=== PATIENT | male | born 1945 | race Caucasian/White ===

== ENCOUNTER 2017-12-23 08:55 | Day surgery (SDC) | payer OTHER ==
--- OUTSIDE RECORDS SUMMARY | 2017-12-23 09:02 | XMS REPORT | Clinical Summary ---
:1945 Author Organization [facility] Address [address] [place] [address] Care Team Providers Name Role Phone Dariel Barros MD Primary Care Provider Allergies Not on File Current Medications Not on file Active Problems Not on file Social History Tobacco Use Types Packs/Day Years Used Date Never Assessed Sex Assigned at Date Recorded Not on file Last Filed Vital Signs Not on file Plan of Treatment Health Maintenance Due Date Last Done Comments COLONOSCOPY 1995 ZOSTER VACCINE 2005 PNEUMOCOCCAL POLYSACCHARIDE VACCINE AGE 65 AND OVER 2010 PNEUMOCOCCAL-13 2010 INFLUENZA VACCINE 04/29/2017 Results Not on fileafter 12/22/2016 Insurance Payer Benefit Plan / Group Subscriber ID Type Phone Address MEDICARE MEDICARE PART A AND B xxxxxxxxxx Medicare [place], [place] COMMERCIAL MISC MISC COMMERCIAL xxxxxxxxxx Commercial Home: Steven ALFONSO JR. y [phone] [address]
--- NOTE | 2017-12-23 09:23 | RAD REPORT ---
EXAM DESCRIPTION: RADOP - Outpt Chest Pa/Lat (2 Views) - 12/23/2017 8:54 am CLINICAL HISTORY: Hypertension/preop COMPARISON: None FINDINGS: The right hemidiaphragm is elevated. This is unchanged from 2016 The lungs appear clear of acute infiltrate. The heart is normal size. IMPRESSION: Chronic elevation of the right hemidiaphragm
[2017-12-23] MEDS ORDERED: Ringers Lactate 1,000 ML IV ONE (09:30)
[2017-12-23] MEDS ORDERED: CEFAZOLIN/SWI 1gm 1 GM/10 ML SYR ONE (09:30)
[2017-12-23 09:48] LABS: Potassium 4.4 mEq/L (3.6-5.0)
[2017-12-23] MEDS ORDERED: LIDOCAINE 1% 20 ML MDV ONE (10:45)
[2017-12-23] MEDS ORDERED: MIDAZOLAM HCL 2 MG/2 ML INJ ONE ×2 (10:56→11:13)
[2017-12-23] MEDS ORDERED: FENTANYL CITR 100 MCG/2 ML ONE (10:56)
[2017-12-23] MEDS ORDERED: Mastisol Adhesive Liq ONE (11:40)
--- NOTE | 2017-12-23 21:18 | OP ---
Date of Procedure: 12/23/2017 Surgeon: Edis Yeh MD Postoperative Diagnoses: Vision loss, right eye. Elevated CRP. Rule out temporal arteritis. Postoperative Diagnoses: Vision loss, right eye. Elevated CRP. Rule out temporal arteritis. Procedure Performed: Right temporal artery biopsy. Doppler utilization to identify the artery. Estimated Blood Loss: Minimal. Specimen: Right temporal artery. Findings: Above. Anesthesia: MAC. Complications: None. Disposition: The patient tolerated the procedure in stable condition and taken to Recovery in good g eneral condition. Operative Note: The patient was brought to the OR and placed in supine position. MAC anesthesia was begun. The patient was prepped and draped in usual sterile fashion and then a Doppler used to ident darrell the branches of temporal artery, anterior and superior to the right ear, marked appropriately. T hen lidocaine 1% was infiltrated locally. A 15-blade was used to make a 4 cm incision. Subcutaneous tissue divided. Deep to that. Branch of the temporal artery identified proximal and distal control obtained. Then, a 4 cm segment of the temporal artery excised, sent to Pathology, and then 4-0 silk used to tie off both ends. Wound irrigated. Bleeding controlled with cautery. A 4-0 chromic used to approximate the subcutaneous tissue and close the skin. Sterile dressing was applied. The patient was awakened and taken to Recovery in good general condition. /MODL Voice ID: [id number] Report ID: [id number]
--- NOTE | 2017-12-23 21:24 | DS ---
Date of Discharge: 12/23/2017 Discharge Note: The patient will go to Day Surgery and home when stable. Disposition: Home. Condition: Stable. Discharge Instructions: Resume home medications. Diet and activities as tolerated. No heavy liftin g. Remove outer dressing in 2 days. Shower. Keep wound clean and dry. Keep Steri-Strips on at all times. Follow up in my office in 2 weeks. Call for appointment. Follow with Dr. Hernandez in 1 filipe valderrama Tylenol No. 3 one tablet p.o. q.4 p.r.n. pain. Keep Steri-Strips on at all times. /MODL Voice ID: [id number] Report ID: [id number]
== END 2017-12-23 12:30 | disposition home or self-care (01) ==
LOC: OR 08:55
PROVIDERS: ATTEND Surgery
PROC: 03BS0ZX Excision of Right Temporal Artery, Open Approach, Diagnostic (ICD-10-PCS; principal; 2017-12-23 10:45)
DX: H54.61 Unqualified visual loss, right eye, normal vision left eye (principal); R79.82 Elevated C-reactive protein (CRP); I10 Essential (primary) hypertension; K58.9 Irritable bowel syndrome, unspecified
CPT/HCPCS: 36415; 37609; 71046; 80048; 88305; J0690; J2250 ×2; J3010

== ENCOUNTER 2018-10-19 17:40 | Emergency (ER) | payer OTHER ==
--- OUTSIDE RECORDS SUMMARY | 2018-10-19 17:42 | XMS REPORT | Clinical Summary ---
:1945 Author Organization [facility] Address [address] [place] [address] Care Team Providers Name Role Phone Dariel Barros Primary Care Provider Allergies No Known Allergies Medications Medication Sig Dispensed Refills Start Date End Date Status ALPRAZolam (NIRAVAM) Take 0.25 mg 0 Active 0.25 MG dissolvable by mouth daily tablet . gabapentin Take 300 mg by 0 Active (NEURONTIN) 300 MG mouth nightly capsule . losartan-hydrochloro Take 1 tablet 0 Active thiazide (HYZAAR) by mouth 50-12.5 mg per daily. tablet metoprolol Take 100 mg by 0 Active (TOPROL-XL) 100 MG mouth daily. 24 hr tablet sertraline (ZOLOFT) Take 100 mg by 0 Active 100 MG tablet mouth daily. cyanocobalamin, Inject as 0 Active vitamin B-12, directed every (VITAMIN B-12 INJ) 30 (thirty) days. dicyclomine (BENTYL) Take 10 mg by 0 Active 10 MG capsule mouth 3 (three) times daily. cyanocobalamin 1000 Take 1,000 mcg 0 Discontinued MCG tablet by mouth 8 daily. felodipine (PLENDIL) Take 10 mg by 0 Discontinued 10 MG 24 hr tablet mouth daily. 8 Active Problems Not on file Encounters Date Type Specialty Care Team Description 06/11/2018 Surgery Guillermo Garrison UPPER ENDOSCOPY,FNA MD Oc W/ULTRASOUND 06/11/2018 Anesthesia Event Subha Swan MD 06/11/2018 Hospital Encounter Guillermo Garrison MD 05/20/2018 Hospital Encounter Pre-Admission Resource, Oqmt Testing Preadmit Phone after 10/18/2017 Social History Tobacco Use Types Packs/Day Years Used Date Former Smoker Quit: 2002 Smokeless Tobacco: Never Used Comments: smoked pipe x 10 yrs Alcohol Use Drinks/Week oz/Week Comments No Sex Assigned at Date Recorded Not on file Job Start Date Occupation Industry Not on file Not on file Not on file Travel History Travel Start Travel End No recent travel history available. Last Filed Vital Signs Vital Sign Reading Time Taken Blood Pressure 118/56 06/11/2018 8:50 AM CDT Pulse 56 06/11/2018 8:50 AM CDT Temperature 36.3 C (97.4 F) 06/11/2018 8:30 AM CDT Respiratory Rate 23 06/11/2018 8:50 AM CDT Oxygen Saturation 94% 06/11/2018 8:50 AM CDT Inhaled Oxygen Concentration - - Weight 92.9 kg (204 lb 14.4 oz) 06/11/2018 6:59 AM CDT Height 172.7 cm (5' 8") 06/11/2018 6:59 AM CDT Body Mass Index 31.15 06/11/2018 6:59 AM CDT Plan of Treatment Not on file Procedures Procedure Name Priority Date/Time Associated Diagnosis Comments REPORT OF 06/11/2018 8:27 PROCEDURE - AM CDT ENDOSCOPY URL TISSUE EXAM AP Routine 06/11/2018 8:05 Results for this AM CDT procedure are in the results section. UPPER 06/11/2018 8:00 Neuroendocrine tumor ENDOSCOPY,BIOPSY AM CDT Special Needs (LINEAR SCOPE) UPPER ENDOSCOPY,FNA W/ULTRASOUND 06/11/2018 8:00 AM CDT Neuroendocrine tumor Special Needs (LINEAR SCOPE) after 10/18/2017 Results REPORT OF PROCEDURE - ENDOSCOPY URL (06/11/2018 8:27 AM CDT) Narrative Performed At Tissue Exam (06/11/2018 8:05 AM CDT) Case Report Surgical Pathology Report Case: [id number] [facility] Authorizing Provider:Guillermo Garrison, MDCollected: 06/11/2018 0805 [facility] Ordering Location: [facility] ENDOSCOPY Received: 06/11/2018 1204 SERVICES Pathologist: Nasrin Blunt MD Specimens: A) - Duodenal, duodenal nodule B) - Stomach,Antrum C) - Stomach, Greater Curvature D) - Stomach, Lesser Curvature E) - Stomach, Fundus Bx ADDENDUM STOMACH LESSER CURVATURE, BIOPSY: [facility] - GASTRIN IMMUNOSTAIN IS NEGATIVE FOR BAND LIKE STAINING , SUPPORTING ATROPHIC OXYNTIC TYPE MUCOSA [facility] DIAGNOSIS A. 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 STOMACH ANTRUM, BIOPSY: - GASTRIC ANTRUM TYPE MUCOSA WITH REACTIVE GASTROPATHY WITH INTESTINAL METAPLASIA - WARTHIN-STARRY STAIN FOR H. PYLORI NEGATIVE - NEGATIVE FOR DYSPLASIA C. STOMACH GREATER CURVATURE, BIOPSY: - GASTRIC BODY WITH MARKEDLY ATROPHIC CHRONIC GASTRITIS WITH MULTIFOCAL INTESTINAL METAPLASIA - SYNAPTOPHYSIN IMMUNOSTAIN IS POSITIVE FOR LINEAR, MICRONODULAR AND ADENOMATOID ECL LIKE CELL HYPERPLASIA - IMMUNOSTAIN FOR H. PYLORI IS NEGATIVE - WARTHIN-STARRY STAIN FOR H. PYLORI IS NEGATIVE D. STOMACH LESSER CURVATURE, BIOPSY: - GASTRIC MUCOSA WITH MARKEDLY ATROPHIC CHRONIC ACTIVE GASTRITIS - SYNAPTOPHYSIN IMMUNOSTAIN IS POSITIVE FOR LINEAR, MICRONODULAR AND ADENOMATOID ECL LIKE CELL HYPERPLASIA - WARTHIN-STARRY STAIN FOR H. PYLORI NEGATIVE E. STOMACH FUNDUS, BIOPSY: - GASTRIC BODY TYPE MUCOSA WITH MARKEDLY ATROPHIC - CHRONIC FOCALLY ACTIVE GASTRITIS WITH INTESTINAL METAPLASIA - SYNAPTOPHYSIN IMMUNOSTAIN IS POSITIVE FOR LINEAR, MICRONODULAR AND ADENOMATOID ECL LIKE CELL HYPERPLASIA SJ/pl Signing Pathologist Direct Phone Line: [phone] COMMENT Endoscopic report reviewed. [facility] These features are suggestive of atrophic gastritis and correlation with patient's anti-parietal serology is recommended to exclude autoimmune gastritis. CPT Code(s) 56184 x5; 94589 x 4; 15675 x4; [facility] 47797 x2 [facility] CLINICAL HISTORY Neuroendocrine [facility] SPECIMEN SOURCE A. Duodenal nodule biopsy. B. [facility] Stomach antrum biopsy. C. [facility] Greater curvature biopsy. D. Lesser curvature biopsies. E. Stomach fundus biopsy GROSS DESCRIPTION Specimen is received in five containers of formalin all labeled with the patient's information. [facility] Specimen A: Labeled "duodenal nodule" consists of four fragments of bravo tissue ranging from 0.1 to 0.5 cm, submitted in A1. Specimen B: Labeled "stomach antrum biopsy" consists of multiple fragments of bravo tissue ranging from 0.1 to 0.5 cm submitted in B1. Specimen C: Labeled "stomach greater curvature" consists of multiple fragments of bravo tissue ranging from 0.1 to 0.3 cm, submitted entirely in C1. Specimen D: Labeled "lesser curvature" consists of multiple fragments of bravo tissue ranging from 0.1 to 0.4 cm, submitted in D1. Specimen E: Labeled "stomach fundus biopsy" consists of four fragments of bravo tissue ranging from 0.1 to 0.5 cm, submitted entirely in E1. CG/ew MICROSCOPIC DESCRIPTION Performed [facility] SPECIAL STUDIES The following special studies were performed on this case and the interpretation is incorporated in the diagnostic report above: [facility] The immunohistochemistry test was developed and its performance characteristics determined by [facility], Pathology Laboratory. It has not been cleared or approved by the U.S. Food [facility] Drug Administration. The FDA has determined that such clearance or approval is not necessary. The test is used for clinical purposes. It should not be regarded as investigational or for research. This laboratory is certified under the Clinical Laboratory Improvement Amendments of 1988 (CLIA-88) as qualified to perform high complexity clinical laboratory testing. Specimen Tissue - Duodenal Performing Organization Address City/State/Zipcode Phone Number [facility] [address], [place] [phone] CENTER after 10/18/2017 Insurance Payer Benefit Plan / Group Subscriber ID Type Phone Address MEDICARE MEDICARE A B xxxxxxxxxxx Medicare [facility] GENERIC MEDICARE xxxxxxxxxx [employer] SUPPLEMENT/INDIVIDUAL SUPPLEMENT (Work) [phone]
--- OUTSIDE RECORDS SUMMARY | 2018-10-19 17:42 | XMS REPORT ---
:1945 [facility] Address [address] [place] [address] Dr. Victor [address] [place] [id number] Care Team Providers Name Role Phone GUILLERMO GARRISON Unavailable Unavailable Problems This patient has no known problems. Allergies, Adverse Reactions, Alerts This patient has no known allergies or adverse reactions. Medications This patient has no known medications. Results Test Description Test Time Test Comments Text Results Atomic Results Result Comments TISSUE EXAM 2018-06-15 13:07:00 Surgical Pathology Report Case: [id number] Authorizing Provider: Guillermo Garrison MD Collected: 06/11/2018 0805 Ordering Location: [facility] END[facility]COPY Received: 06/11/2018 1204 SERVICES Pathologist: Nasrin Blunt MD Specimens: A) - Duodenal, duodenal nodule B) - Stomach, Antrum C) - Stomach, Greater Curvature D) - Stomach, Lesser Curvature E) - Stomach, Fundus Bx STOMACH LESSER CURVATURE, BIOPSY: - GASTRIN IMMUNOSTAIN IS NEGATIVE FOR BAND LIKE STAINING , SUPPORTING ATROPHIC OXYNTIC TYPE MUCOSAAddendum electronically signed by Nasrin Blunt MD on 06/15/2018 at 1:07 PMA. 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 STOMACH ANTRUM, BIOPSY: - GASTRIC ANTRUM TYPE MUCOSA WITH REACTIVE GASTROPATHY WITH INTESTINAL METAPLASIA - WARTHIN-STARRY STAIN FOR H. PYLORI NEGATIVE - NEGATIVE FOR DYSPLASIAC. STOMACH GREATER CURVATURE, BIOPSY: - GASTRIC BODY [...] HYPERPLASIA SJ/pl Signing Pathologist Direct Phone Line: [phone] signed by Nasrin Blunt MD on 06/15/2018 at 1:05 PMEndoscopic report reviewed. These features are suggestive of atrophic gastritis and correlation with patient's anti-parietal serology is recommended to exclude autoimmune gastritis. 44338 x5; 35034 x 4; 05118 x4; 61946 [id number] A. Duodenal nodule biopsy. B. Stomach antrum biopsy. C. Greater curvature biopsy. D. Lesser curvature biopsies. E. Stomach fundus biopsy Specimen is received in five containers of formalin all labeled with the patient's information.Specimen A: Labeled "duodenal nodule" consists of four fragments of bravo tissue ranging from 0.1 to 0.5 cm, submitted in A1.Specimen B: Labeled "stomach antrum biopsy" consists of multiple fragments of rbavo tissue ranging from 0.1 to 0.5 cm submitted in B1.Specimen C: Labeled "stomach greater curvature" consists of multiple fragments of bravo tissue ranging from 0.1 to 0.3 cm, submitted entirely in C1.Specimen D: Labeled "lesser curvature" consists of multiple fragments of bravo tissue ranging from 0.1 to 0.4 cm, submitted in D1.Specimen E: Labeled "stomach fundus biopsy" consists of four fragments of bravo tissue ranging from 0.1 to 0.5 cm, submitted entirely in E1. CG/ewPerformed The following special studies were performed on this case and the interpretation is incorporated in the diagnostic report above:The immunohistochemistry test was developed and its performance characteristics determined by [facility], Pathology Laboratory. It has not been cleared or approved by the U.S. Food and Drug Administration. The FDA has determined that such clearance or approval is not necessary. The test is used for clinical purposes. It should not be regarded as investigational or for research. This laboratory is certified under the Clinical Laboratory Improvement Amendments of 1988 (CLIA-88) as qualified to perform high complexity clinical laboratory testing.
--- OUTSIDE RECORDS SUMMARY | 2018-10-19 17:42 | XMS REPORT | Clinical Summary ---
:1945 Author Organization [facility] Address [address] [place] [address] Care Team Providers Name Role Phone Dariel Barros MD Primary Care Provider Allergies Not on File Medications Not on file Active Problems Not on file Social History Tobacco Use Types Packs/Day Years Used Date Never Assessed Sex Assigned at Date Recorded Not on file Job Start Date Occupation Industry Not on file Not on file Not on file Travel History Travel Start Travel End No recent travel history available. Last Filed Vital Signs Not on file Plan of Treatment Health Maintenance Due Date Last Done Comments COLON CANCER SCREENING 1995 SHINGLES VACCINES (1 of 2) 1995 PNEUMOCOCCAL POLYSACCHARIDE VACCINE AGE 65 AND OVER 2010 PNEUMOCOCCAL-13 2010 INFLUENZA VACCINE 04/29/2018 Results Not on fileafter 10/18/2017 Insurance Payer Benefit Plan / Group Subscriber ID Type Phone Address MEDICARE MEDICARE PART A AND B xxxxxxxxxx Medicare [place], [place] COMMERCIAL MISC MISC COMMERCIAL xxxxxxxxxx Commercial Advance Directives Patient has advance care planning documents on file. For more information, please contact:[place] [phone] [place] [address]
--- NOTE | 2018-10-19 18:15 | RAD REPORT ---
EXAM DESCRIPTION: CT - [id number] - 10/19/2018 5:51 pm CLINICAL HISTORY: Trauma, head and neck injury. PAIN COMPARISON: Head Brain W/Wo Con dated 08/28/2017 TECHNIQUE: Axial 5 mm thick images of the head were obtained. Axial 2 mm thick images of the cervical spine were obtained with sagittal and coronal reconstruction images generated and reviewed. All CT scans are performed using dose optimization technique as appropriate and may include automated exposure control or mA/KV adjustment according to patient size. FINDINGS: CT HEAD WITHOUT CONTRAST: Along the falx there is increased density seen measuring up to 5 mm in thickness. This is a notable c hange relative to the comparative CT head study. Given the history of trauma this may represent a sma ll volume of acute subdural blood.Generalized brain atrophy noted.No midline shift. The paranasal sinuses and mastoids are clear.The calvarium is intact. Small right posterior scalp hem atoma. CT CERVICAL SPINE WITHOUT CONTRAST: No fracture or subluxation.Moderate midcervical degenerative changes. 2 mm degenerative anterolisthes is of C3 on 4. 3 mm degenerative anterolisthesis of C4 on 5. 4 mm degenerative anterolisthesis of C7 on T1.No prevertebral soft tissues swelling is identified. Carotid atherosclerosis. IMPRESSION: Hyperdensity along the falx is noted measuring 5 mm in thickness, notably different from comparative study. This may represent a small volume of acute subdural blood.No midline shift. MR im aging of the brain may be of value for further characterization. Moderate multilevel degenerative change of the cervical spine is seen without acute fracture suspecte d. Findings were discussed with Dr. Gill in the emergency room 6:10 p.m. 10/19/2018 by telephone.
[2018-10-19 18:18] LABS: Absolute Lymphocytes (CBC) 1.4 K/uL (0.7-4.9); Absolute Monocytes 0.8 K/uL (0.1-1.3); Absolute Neutrophil 3.9 K/uL (1.8-8.0); Basophils % 0.7 % (0-1.3); Eosinophils % 4.3 % (0-4.4); Hematocrit 45.7 % (39.6-49.0); Lymphocytes % 21.7 % (15.3-44.8); MPV 6.6 fL (7.6-11.3); Monocytes % 12.6 % (3.3-12.3); RBC Red Blood Cell Count 5.66 M/uL (4.33-5.43)
--- NOTE | 2018-10-19 18:29 | ER ---
Nurse's Notes [facility] Name: Magdiel Hernandez Jr Age: 73 yrs Sex: Male : 1945 Arrival Date: 10/19/2018 Time: 17:45 Bed 2 Private MD: Diagnosis: Traumatic subdural hemorrhage Presentation: 10/19 17:47 Presenting complaint: EMS states: witnessed fall on wet and muddy concrete. It appeared ss that patient slipped and fell striking back of head on concrete. Probable loss of consciousness. Pt is currently A\T\O x2. no active bleeding at this time, but son reports there was a small pool of blood where patient fell at the scene. Transition of care: patient was not received from another setting of care. Mechanism of Injury: resulted from a fall, from a standing position. Onset of symptoms was October 19, 2018. Risk Assessment: Do you want to hurt yourself or someone else? Patient reports no desire to harm self or others. Initial Sepsis Screen: Does the patient meet any 2 criteria? No. Patient's initial sepsis screen is negative. Does the patient have a suspected source of infection? No. Patient's initial sepsis screen is negative. Care prior to arrival: None. 17:47 Method Of Arrival: EMS: [facility] 17:47 Acuity: BECCA 2 17:47 Trauma event details: Injury occurred in the [facility], Injury occurred: in a public building. Injury occurred: October 19, 2018. Triage Assessment: 17:47 General: Appears in no apparent distress. comfortable, Behavior is calm, cooperative, ss Pt is laughing and joking with ED staff. . Pain: Complains of pain in left parietal area and right parietal area Pain currently is 5 out of 10 on a pain scale. Quality of pain is described as aching, tender, throbbing, Pain began 30 min ago. Is continuous. EENT: Nares are clear Oral mucosa is moist. Throat is clear. Neuro: Level of Consciousness is awake, alert, obeys commands, Oriented to person, situation, Supplier Development Manager are equal bilaterally. Neuro: Level of Consciousness is awake, alert, obeys commands, Oriented to person, situation, Supplier Development Manager are Moves all extremities. Full function Speech is normal, Facial symmetry appears normal, Pupils are PERRLA, Reports short term memory loss. Denies dizziness, difficulty swallowing, paresthesias numbness headache. Cardiovascular: Heart tones S1 S2 present Capillary refill < 3 seconds is brisk in bilateral fingers Patient's skin is warm and dry. Respiratory: Airway is patent Trachea midline Respiratory effort is even, unlabored, Respiratory pattern is regular, symmetrical. GI: Patient currently denies abdominal pain, nausea, vomiting. : No signs and/or symptoms were reported regarding the genitourinary system. Derm: Skin is intact, is healthy with good turgor, Skin is dry, Skin is pink, warm \T\ dry. normal. Musculoskeletal: Range of motion: intact in all extremities, Swelling present in scalp. Injury Description: Laceration sustained to scalp no active bleeding noted at this time. Trauma Activation: Alert Physician: ED Physician; Name: Dr. Gill / Edmond; Notified At: 17:32; Arrived At: 17:32 Physician: General Surgeon; Name: ; Notified At: 17:32; Arrived At: Specialty not needed Physician: Radiology; Name: Trinidad ALFONSO; Notified At: 17:32; Arrived At: 17:32 Physician: Respiratory; Name: ; Notified At: 17:32; Arrived At: Specialty not needed Physician: Lab; Name: ; Notified At: 17:32; Arrived At: Specialty not needed Historical: - Allergies: 17:49 No Known Allergies; ss - Immunization history:: Adult Immunizations up to date. - Social history:: Smoking status: Patient/guardian denies using tobacco, Patient/guardian denies using alcohol, street drugs, The patient lives with family. - Immunization history: Last tetanus immunization: - up to date. - Ebola Screening: : Patient denies exposure to infectious person Patient denies travel to an Ebola-affected area in the 21 days before illness onset. - Family history:: not pertinent. Screenin:45 Abuse screen: Denies threats or abuse. Denies injuries from another. Nutritional ss screening: No deficits noted. Tuberculosis screening: No symptoms or risk factors identified. Never had TB. Fall Risk None identified. Primary Survey: 17:47 NO uncontrolled hemorrhage observed. A: The patient is alert. Airway: patent, No ss supplemental oxygen in use on arrival. Oral cavity: clear, Trachea midline. Breathing/Chest: Respiratory pattern: regular, Respiratory effort: spontaneous, unlabored, Breath sounds: clear, bilaterally. Chest inspection: symmetrical rise and fall of the chest. Circulation: Heart tones present. Pulses: palpable right radial artery, right dorsalis pedis artery, left radial artery and left dorsalis pedis artery. Skin color: pink, Skin temperature: warm. Disability Alert. Exposure/Environment: There is no evidence of uncontrolled external bleeding. Obvious injury(ies) are noted at this time: large laceration noted to back of head. No active bleeding noted at this time. 17:47 Reassessment Airway Airway Breathing/Chest Respiratory pattern Regular Respiratory ss effort Spontaneous Unlabored Breath sounds Clear Chest inspection Symmetrical Circulation Pulses Palpable Color [place] Temperature Warm Disability Alert. Secondary Survey: 17:47 HEENT: Head Other moderate swelling and laceration without active bleeding noted to ss back of head. Nose: clear Throat: No injury or deformity noted. is clear. Musculoskeletal: Circulation, motion, and sensation intact. Range of motion: intact in all extremities. Assessment: 17:45 Reassessment: Pt to CT at this time. Awake and alert. Pt is laughing and joking with ED ss staff and son at bedside. 17:47 Reassessment: SEE TRIAGE ASSESSMENT FOR GENERAL ASSESSMENT. ss 18:45 Reassessment: Patient appears in no apparent distress at this time. Pt does not ss remember going to CT. GCS remains 14. Patient is oriented to person currently. Is laughing and joking with ED staff and family. No active bleeding noted. Wound has been cleaned and temporary dressing placed. Respiratory: Airway is patent Respiratory effort is even, unlabored, Respiratory pattern is regular, symmetrical. Derm: Skin is pink, warm \T\ dry. normal. Vital Signs: 17:49 BP 151 / 73; Pulse 72; Resp 16; Pulse Ox 98% on R/A; Weight 90.72 kg; Height 5 ft. 8 ss in. (172.72 cm); Pain 5/10; 18:33 Temp 98.0(TE); ss 18:44 BP 169 / 89; Pulse 73; Resp 18; Pulse Ox 97% on R/A; Pain 5/10; ss 17:49 Body Mass Index 30.41 (90.72 kg, 172.72 cm) [place] Coma Score: 17:47 Eye Response: spontaneous(4). Verbal Response: oriented(5). Motor Response: obeys ss commands(6). Total: 15. 17:47 Eye Response: spontaneous(4). Verbal Response: confused(4). Motor Response: obeys ss commands(6). Total: 14. 17:51 Eye Response: spontaneous(4). Verbal Response: oriented(5). Motor Response: obeys ma2 commands(6). Total: 15. 18:44 Eye Response: spontaneous(4). Verbal Response: confused(4). Motor Response: obeys ss commands(6). Total: 14. Trauma Score (Adult): 17:47 Eye Response: spontaneous(1); Verbal Response: confused(1); Motor Response: obeys ss commands(2); Systolic BP: > 89 mm Hg(4); Respiratory Rate: 10 to 29 per min(4); [place] Score: 14; Trauma Score: 12 18:44 Eye Response: spontaneous(1); Verbal Response: confused(1); Motor Response: obeys ss commands(2); Systolic BP: > 89 mm Hg(4); Respiratory Rate: 10 to 29 per min(4); [place] Score: 14; Trauma Score: 12 ED Course: 17:45 Patient arrived in ED. ss 17:45 Patient has correct armband on for positive identification. Bed in low position. Call ss light in reach. 17:45 Patient maintains SpO2 saturation greater than 95% on room air. ss 17:46 Mitesh Dick MD is Attending Physician. ma2 17:47 Thermoregulation: warm blanket given to patient. ss 17:49 Triage completed. ss 17:49 Arm band placed on right wrist. ss 17:51 CT completed. Patient tolerated procedure well. Patient moved back from CT. nj 17:52 Siena Osuna, REUBEN is Primary Nurse. ss 17:52 CT Head C Spine In Process Unspecified. EDMS 18:08 Inserted saline lock: 20 gauge in right antecubital area, using aseptic technique. rv 18:08 Initial lab(s) drawn, by me, sent to lab. rv 18:40 No provider procedures requiring assistance completed. Patient transferred, IV remains ss in place. Administered Medications: 18:31 Not Given (Duplicate Order): head elevation 30 degree 1 application Topical continuous ss 18:35 Not Given (Physician Discretion): Lidocaine-Epinephrine -1%: (1:100,000) 20 ml 20 ml ss Infiltration once; to bedside Intake: 18:44 PO: 0ml; Total: 0ml. Outcome: 18:27 ER care complete, transfer ordered by . ma2 18:52 Condition: stable ss 18:52 Instructed on the need for transfer. 19:15 [facility], Transfer form completed. X-rays sent ss w/ patient. 19:16 Patient's length of stay was not longer than 2 hours. ss 19:16 Patient left the ED. ss 19:37 Patient left the ED. ss Signatures: Dispatcher [employer] EDMS German Mckay RN RN Siena Osuna RN RN Lauri Vuong Mohammad, MD MD ma2 Marvin Esparza RN RN rv Corrections: (The following items were deleted from the chart) 18:31 18:19 head elevation 30 degree 1 application Topical in affected area [facility] 18:51 17:47 Injury Description: Laceration sustained to scalp [facility]
--- NOTE | 2018-10-19 18:30 | EDPHYS ---
Physician Documentation [facility] Name: Magdiel Hernandez Jr Age: 73 yrs Sex: Male : 1945 Arrival Date: 10/19/2018 Time: 17:45 Bed 2 Private MD: ED Physician Mitesh Dick HPI: 10/19 17:51 This 73 yrs old Male presents to ER via EMS with complaints of Head ma2 Injury-Adult. 17:51 The patient or guardian reports injury, a laceration, complex, pain, tenderness. The ma2 complaints affect the occipital area . Onset: The symptoms/episode began/occurred suddenly, 1 hour(s) ago. Associated signs and symptoms: Loss of consciousness: This patient experience a loss of consciousness, Pertinent positives: headache, Pertinent negatives: patient denies any alcohol consumption, dazed, headache, injury, weakness in extremities, generalized weakness. Severity of symptoms: At their worst the symptoms were moderate, in the emergency department the symptoms are unchanged. The patient has experienced a previous episode. The patient has experienced a previous episode. Historical: - Allergies: 17:49 No Known Allergies; ss - Immunization history:: Adult Immunizations up to date. - Social history:: Smoking status: Patient/guardian denies using tobacco, Patient/guardian denies using alcohol, street drugs, The patient lives with family. - Immunization history: Last tetanus immunization: - up to date. - Ebola Screening: : Patient denies exposure to infectious person Patient denies travel to an Ebola-affected area in the 21 days before illness onset. - Family history:: not pertinent. ROS: 17:51 Constitutional: Negative for fever, chills, and weight loss, Cardiovascular: Negative ma2 for chest pain, palpitations, and edema, Respiratory: Negative for shortness of breath, cough, wheezing, and pleuritic chest pain, Abdomen/GI: Negative for abdominal pain, nausea, diarrhea, and constipation, MS/Extremity: Negative for injury and deformity, Skin: Negative for injury, rash, and discoloration, Neuro: Negative for headache, weakness, numbness, tingling, and seizure, Psych: Negative for depression, anxiety, suicide ideation, homicidal ideation, and hallucinations. 17:51 ENT: Positive for 17:51 Neuro: Positive for headache, Negative for dizziness, loss of consciousness, seizure activity, syncope, visual changes, weakness. 17:51 All other systems are negative. Exam: 17:51 Constitutional: This is a well developed, well nourished patient who is awake, alert, ma2 and in no acute distress. ENT: Nares patent. No nasal discharge, no septal abnormalities noted. Tympanic membranes are normal and external auditory canals are clear. Oropharynx with no redness, swelling, or masses, exudates, or evidence of obstruction, uvula midline. Mucous membranes moist. Chest/axilla: Normal chest wall appearance and motion. Nontender with no deformity. No lesions are appreciated. Cardiovascular: Regular rate and rhythm with a normal S1 and S2. No gallops, murmurs, or rubs. Normal PMI, no JVD. No pulse deficits. Respiratory: Lungs have equal breath sounds bilaterally, clear to auscultation and percussion. No rales, rhonchi or wheezes noted. No increased work of breathing, no retractions or nasal flaring. Abdomen/GI: Soft, non-tender, with normal bowel sounds. No distension or tympany. No guarding or rebound. No evidence of tenderness throughout. MS/ Extremity: Pulses equal, no cyanosis. Neurovascular intact. Full, normal range of motion. Neuro: Awake and alert, GCS 15, oriented to person, place, time, and situation. Cranial nerves II-XII grossly intact. Motor strength 5/5 in all extremities. Sensory grossly intact. Cerebellar exam normal. Normal gait. 17:51 Head/face: Noted is abrasion(s), a laceration(s), that is jagged, of the right occipital area. Vital Signs: 17:49 BP 151 / 73; Pulse 72; Resp 16; Pulse Ox 98% on R/A; Weight 90.72 kg; Height 5 ft. 8 ss in. (172.72 cm); Pain 5/10; 18:33 Temp 98.0(TE); ss 18:44 BP 169 / 89; Pulse 73; Resp 18; Pulse Ox 97% on R/A; Pain 5/10; ss 17:49 Body Mass Index 30.41 (90.72 kg, 172.72 cm) [place] Coma Score: 17:47 Eye Response: spontaneous(4). Verbal Response: oriented(5). Motor Response: obeys commands(6). Total: 15. 17:47 Eye Response: spontaneous(4). Verbal Response: confused(4). Motor Response: obeys ss commands(6). Total: 14. 17:51 Eye Response: spontaneous(4). Verbal Response: oriented(5). Motor Response: obeys ma2 commands(6). Total: 15. 18:44 Eye Response: spontaneous(4). Verbal Response: confused(4). Motor Response: obeys ss commands(6). Total: 14. Trauma Score (Adult): 17:47 Eye Response: spontaneous(1); Verbal Response: confused(1); Motor Response: obeys ss commands(2); Systolic BP: > 89 mm Hg(4); Respiratory Rate: 10 to 29 per min(4); [place] Score: 14; Trauma Score: 12 18:44 Eye Response: spontaneous(1); Verbal Response: confused(1); Motor Response: obeys ss commands(2); Systolic BP: > 89 mm Hg(4); Respiratory Rate: 10 to 29 per min(4); [place] Score: 14; Trauma Score: 12 MDM: 17:46 Patient medically screened. ma2 17:51 Differential diagnosis: Contusion of Hematoma on Laceration of Intracranial bleed- ma2 Concussion. 18:26 Data reviewed: vital signs, nurses notes, radiologic studies. Counseling: I had a ma2 detailed discussion with the patient and/or guardian regarding: the historical points, exam findings, and any diagnostic results supporting the discharge/admit diagnosis, the presence of at least one elevated blood pressure reading (>120/80) during this emergency department visit, the need to transfer to another facility, for higher level of care. ED course: accepted by Dr. Fernandes at [facility]. 18:32 Counseling: I had a detailed discussion with the patient and/or guardian regarding: ma2 transfer higher level of care for NSGY not available in our hospital . 19:30 ED course: diagnosis is traumatic subdural hematoma. mi2 10/19 17:47 Order name: Basic Metabolic Panel; Complete Time: 18:37 mi2 10/19 17:47 Order name: CBC with Diff; Complete Time: 18:24 mi2 10/19 17:47 Order name: CT Head C Spine; Complete Time: 18:22 mi2 10/19 17:47 Order name: Creatinine for Radiology; Complete Time: 18:37 [facility] 10/19 17:47 Order name: Type And Screen; Complete Time: 19:07 [facility] 10/19 17:47 Order name: Labs collected and sent; Complete Time: 18:16 [facility] 10/19 18:01 Order name: Dressing - Wound; Complete Time: 18:47 [facility] 10/19 18:32 Order name: Misc. Order: elevate HOB 30 degrees; Complete Time: 18:33 ss Administered Medications: 18:31 Not Given (Duplicate Order): head elevation 30 degree 1 application Topical continuous ss 18:35 Not Given (Physician Discretion): Lidocaine-Epinephrine -1%: (1:100,000) 20 ml 20 ml ss Infiltration once; to bedside Disposition: 19:30 Co-signature as Attending Physician, Mitesh Dick MD. [facility] Disposition: 10/19/18 18:27 Transfer ordered to [facility]. Diagnosis is Traumatic subdural hemorrhage. - Reason for transfer: Higher level of care. - Accepting physician is Dr. Dena GREEN. - Condition is Stable. - Problem is new. - Symptoms are unchanged. Critical care time excluding procedures: 19:30 Critical care time: Bedside Care: 20 minutes, Consultation: 20 minutes, Family ma2 Intervention: 10 minutes. Total time: 50 minutes Signatures: Dispatcher [employer] EDGerman Ferrell RN RN sg Anderson, Corey, MD MD cha Smirch, Shelby, RN RN ss Page, Corey, PA PA cp Alzahri, Mohammad, MD MD maDamien Corrections: (The following items were deleted from the chart) 18:32 18:31 Misc. Order ordered. ss ss 18:47 18:01 Sterile Gloves ordered. ma2 ss 18:48 18:01 Setup Suture Tray ordered. ma2 ss 19:16 18:27 10/19/2018 18:27 Transfer ordered to [facility]. ss Diagnosis is Nontraumatic acute subdural hemorrhage. Reason for transfer: Higher level of care. Accepting physician is Dr. Dena GREEN. Condition is Stable. Problem is new. Symptoms are unchanged. ma2 19:34 19:16 10/19/2018 18:27 Transfer ordered to [facility]. ma2 Diagnosis is Nontraumatic acute subdural hemorrhage. Reason for transfer: Higher level of care. Accepting physician is Dr. Dena GREEN. Condition is Stable. Problem is new. Symptoms are unchanged. ss 19:37 19:34 10/19/2018 18:27 Transfer ordered to [facility]. ss Diagnosis is Traumatic subdural hemorrhage. Reason for transfer: Higher level of care. Accepting physician is Dr. Dena GREEN. Condition is Stable. Problem is new. Symptoms are unchanged. ma2
[2018-10-19] MEDS ORDERED: LIDOCAINE 1% W/EPI 1:100,000 MDV 50 ML VIAL ONE (18:35)
== END 2018-10-19 19:37 | disposition short-term general hospital (02) ==
LOC: ER 17:40
DX: S06.5X9A Traumatic subdural hemorrhage with loss of consciousness of unspecified duration, initial encounter (principal); W01.0XXA Fall on same level from slipping, tripping and stumbling without subsequent striking against object, initial encounter; Y93.89 Activity, other specified; Y92.89 Other specified places as the place of occurrence of the external cause
CPT/HCPCS: 36415; 70450; 72125; 80048; 85025; 86850; 86900; 86901; 99285

== ENCOUNTER 2022-03-04 09:49 | Emergency (ER) | payer OTHER ==
--- OUTSIDE RECORDS SUMMARY | 2022-03-04 09:51 | XMS REPORT | Continuity of Care Document ---
:1945 Author Organization [facility] t Address [address] [place] [address] Care Team Providers Name Role Phone ROSANA RODRIGUEZ Primary Care Physician Unavailable JEFF GARRISON Attending Clinician Unavailable GEORGE Attending Clinician Unavailable Royal RN FIELD Attending Clinician Provider, Urgent Care Attending Clinician Unavailable ROYAL Attending Clinician Unavailable JEFF GARRISON Admitting Clinician Unavailable Payers Payer Name Policy Type Policy Number Effective Date Expiration Date S eben MEDICARE A B [id number] 2010 00:00:00 GENERIC MEDICARE [id number] 2015 SUPPLEMENT 00:00:00 MEDICARE PART A \\T\\ [id number] B - MEDICARE POS - [employer] [id number] MEDIGAP-GENERIC - [id number] GENERIC PAYOR Problems Condition Condition Condition Status Onset Resolution Last Treating Co mments Source Name Details Category Date Date Treatment Clinician Date No known No known Disease Unive rs active active ity of problems problems [facility] Allergies, Adverse Reactions, Alerts Allergy Allergy Status Severity Reaction(s) Onset Inactive Treating Comm ents Source Name Type Date Date Clinician NO KNOWN Drug Active Univers ALLERGIE Class ity of S [facility] NO KNOWN Allergy Active [facility] ALLERGIE S Social History Social Habit Start Date Stop Date Quantity Comments Source History of Cigarette Smoker Universi ty of tobacco use [place] [facility] Sex Assigned At Universit y of [facility] Tobacco use and 2020-06-03 2020-06-03 Never used Universit y of exposure 00:00:00 00:00:00 [facility] Smoking Status Start Date Stop Date Source Former smoker 2020-06-03 00:00:00 2020-06-03 00:00:00 [facility] Medications Ordered Filled Start Stop Current Ordering Indication Dosage Frequency Signature Comments Components Source Medication Medication Date Date Medication? Clinician (SIG) Name Name vit 2019-0 Yes Take by Univers C/E/Zn/chidi 9-05 mouth. ity of r/lutein/ze 19:38: [place] [id number] Medical (PRESERVISI Branch ON AREDS-2 ORAL) vit 2019-0 Yes Take by Univers C/E/Zn/chidi 9-05 mouth. ity of r/lutein/ze 19:38: [place] [address] Medical (PRESERVISI Branch ON AREDS-2 ORAL) amitriptyli 2019-0 Yes Univer s ne 10 mg 9-05 ity of tablet 00:00: [address] albuterol 2019-0 Yes [id number] 2{puff} Inhale 2 Univers 90 9-05 Puffs ity of mcg/actuati 00:00: every 6 Bry as on inhaler 00 (six) Medical hours as Branch needed for Wheezing, Shortness of Breath or Chest tightness. benzonatate 2020-0 Yes [id number] 100mg Take 1 Univers (TESSALON 9-05 capsule by ity of PERLES) 100 00:00: mouth 3 Bry as mg capsule 00 (three) Medica l times Branch daily as needed for Cough. amitriptyli 2019-0 Yes Univer s ne 10 mg 9-05 ity of tablet 00:00: [address] albuterol 2020-0 Yes [id number] 2{puff} Inhale 2 Univers 90 9-05 Puffs ity of mcg/actuati 00:00: every 6 Bry as on inhaler 00 (six) Medical hours as Branch needed for Wheezing, Shortness of Breath or Chest tightness. benzonatate 2020-0 Yes [id number] 100mg Take 1 Univers (TESSALON 9-05 capsule by ity of PERLES) 100 00:00: mouth 3 Bry as mg capsule 00 (three) Medica l times Branch daily as needed for Cough. felodipine 2020-0 Yes Univers 10 mg 24 hr 9- ity of tablet 00:00: [place] 00 [facility] Branch felodipine 2020-0 Yes Univers 10 mg 24 hr 9- ity of tablet 00:00: [place] 00 Medical Branch SERTraline 2020-0 Yes Univers 100 mg 8-29 ity of tablet 00:00: [place] 00 Medical Branch SERTraline 2020-0 Yes Univers 100 mg 8-29 ity of tablet 00:00: [place] 00 Medical Branch oxybutynin 2019-0 Yes TAKE 1 Unive rs 10 mg 24 hr 8-28 TABLET BY ity of tablet 00:00: MOUTH [place] 00 TWICE Medical DAILY FOR Branch 90 DAYS metoprolol 2019-0 Yes 100mg Take 100 Un dalila succinate 8-28 mg by ity of XL 100 mg 00:00: mouth [place] 24 hr 00 daily. Medical tablet Branch gabapentin 2019-0 Yes TAKE 1 Unive rs 100 mg 8-28 CAPSULE BY ity of capsule 00:00: MOUTH AT [place] 00 BEDTIME Medical FOR 30 Branch DAYS oxybutynin 2019-0 Yes TAKE 1 Unive rs 10 mg 24 hr 8-28 TABLET BY ity of tablet 00:00: MOUTH [place] 00 TWICE Medical DAILY FOR Branch 90 DAYS metoprolol 2019-0 Yes 100mg Take 100 Un dalila succinate 8-28 mg by ity of XL 100 mg 00:00: mouth [place] 24 hr 00 daily. Medical tablet Branch gabapentin 2019-0 Yes TAKE 1 Unive rs 100 mg 8-28 CAPSULE BY ity of capsule 00:00: MOUTH AT [place] 00 BEDTIME Medical FOR 30 Branch DAYS ALPRAZolam 2019-0 Yes .25mg Take 0.25 U nivers 0.25 mg 8-22 mg by ity of tablet 00:00: mouth [place] 00 daily. Medical Branch ALPRAZolam 2019-0 Yes .25mg Take 0.25 U nivers 0.25 mg 8-22 mg by ity of tablet 00:00: mouth [place] 00 daily. Medical Branch losartan-hy 2020-0 Yes 1{tbl} Take 1 Un dalila drochloroth 8-21 tablet by ity of iazide 00:00: mouth [place] 50-12.5 mg 00 daily. Medical per tablet Branch losartan-hy 2020-0 Yes 1{tbl} Take 1 Un dalila drochloroth 8-21 tablet by ity of iazide 00:00: mouth [place] 50-12.5 mg 00 daily. Medical per tablet Branch dicyclomine Yes TAKE 1 Univ ers 10 mg 3-31 CAPSULE BY ity of capsule 00:00: MOUTH [place] 00 THREE Medical TIMES A Branch DAY (BEFORE MEALS) TAKE 1 CAPSULE BY MOUTH FOUR TIMES A DAY dicyclomine 2019-0 Yes TAKE 1 Univ ers 10 mg 3-31 CAPSULE BY ity of capsule 00:00: MOUTH [place] 00 THREE Medical TIMES A Branch DAY (BEFORE MEALS) TAKE 1 CAPSULE BY MOUTH FOUR TIMES A DAY Vital Signs Vital Name Observation Time Observation Value Comments Source HEIGHT 2021-01-22 08:37:00 174 cm WEIGHT 2021-01-22 08:37:00 94.303 kg WEIGHT 2021-01-18 13:32:00 94.348 kg HEIGHT 2021-01-18 13:32:00 172.7 cm HEIGHT 2021-01-22 08:37:00 174 cm WEIGHT 2021-01-22 08:37:00 94.303 kg WEIGHT 2021-01-18 13:32:00 94.348 kg HEIGHT 2021-01-18 13:32:00 172.7 cm Systolic blood 2020-06-03 19:29:00 134 mm[Hg] Univer sity [facility] Diastolic blood 2020-06-03 19:29:00 77 [facility]Hg[facility] 2020-06-03 19:27:00 87 /min [facility] Body temperature 2020-06-03 19:27:00 36.72 [facility] Respiratory rate 2020-06-03 19:27:00 20 /min [facility] Body height 2020-06-03 19:27:00 172.7 cm [facility] Body weight 2020-06-03 19:27:00 94.348 kg [facility] BMI 2020-06-03 19:27:00 31.63 kg/m2 [facility] Oxygen saturation in 2020-06-03 19:27:00 94 /min University Arterial blood by [facility] Pulse oximetry Branch Systolic blood 2020-06-03 19:29:00 134 mm[Hg] Univer sity [facility] Diastolic blood 2020-06-03 19:29:00 77 mm[Hg] Unive rsity of pressure [facility] Heart rate 2020-06-03 19:27:00 87 /min Universi [facility] Body temperature 2020-06-03 19:27:00 36.72 Minoo [facility] Respiratory rate 2020-06-03 19:27:00 20 /min [facility] Body height 2020-06-03 19:27:00 172.7 cm Universi ty [facility] Body weight 2020-06-03 19:27:00 [facility] 2020-06-03 19:27:00 31.63 kg/m2 [facility] Oxygen saturation in 2020-06-03 19:27:00 94 /min [facility] Arterial blood by [facility] Pulse oximetry Branch Procedures Procedure Date / Time Performed Performing Clinician Sour e XR CHEST 2 VW 2020-06-03 20:21:37 Marsha Martines [place] o f [facility] Encounters Start End Encounter Admission Attending Care Care Encounter Source Date/Time Date/Time Type Type Clinicians Facility Department ID 2021-07-07 Outpatient KASIE GARRISON Surgery [id number] [facility] 11:48:47 GUILLERMO 2021-05-01 2021-05-01 Outpatient YOUSIF GARRISON [facility] [id number] [facility] 07:49:47 08:37:07 GUILLERMO [facility] of Medicin e 2021-01-18 2021-01-18 Outpatient [facility] [id number] [facility] 00:00:00 00:00:00 2020-06-03 2020-06-03 [facility] [id number] 15:05:09 23:59:00 Encounter Marsha Diaz [id number] [place] [id number] [place] [id number] 2020-06-03 2020-06-03 [facility] [id number] [facility] 15:05:09 23:59:00 Encounter Marsha Diaz [id number] ity latoya Jim [id number] [facility] [id number] [facility] [address] [place] 2020-06-03 2020-06-03 Urgent Provider, [facility] [id number] 14:22:44 15:41:42 [facility] [id number] Care [place] [id number] Professio [id number] [address] 2020-06-03 2020-06-03 Urgent Provider, [facility] [id number] [facility] 14:22:44 15:41:42 Care [facility] [id number] ity of [place] [id number] Bry as Professio [id number] [facility] [address] [place] [address] 2020-06-03 2020-06-03 Outpatient R [facility]AL [facility] [id number] Univers 14:20:00 14:20:00 [facility] Results Test Test Test Results Result Source Description Time Comments Comments TISSUE EXAM 2020-12- Surgical Pathology 28 Report 07:58:00 Case: [id number] Authorizing Provider: Guillermo Garrison MD Collected: 01/22/2021 11:20 AM Ordering Location: [facility] Endoscopy Received: 01/22/2021 02:27 PM Services Pathologist: Bobby Warner MD Specimens: A) - Biopsy, Gastric, gastric antrum biopsy B) - Biopsy, Gastric, gastric body biopsy A. STOMACH, ANTRUM, BIOPSY: - MILD CHRONIC INACTIVE GASTRITIS - NEGATIVE FOR HELICOBACTER PYLORI ORGANISMS BY WARTHIN STARRY STAIN - NEGATIVE FOR INTESTINAL METAPLASIA, DYSPLASIA, MALIGNANCYB. STOMACH, BODY, BIOPSY: - CHRONIC ATROPHIC GASTRITIS WITH INTESTINAL METAPLASIA (SEE COMMENT) - LINEAR, MICRONODULAR ECL CELL LIKE HYPERPLASIA - NEGATIVE FOR HELICOBACTER PYLORI ORGANISMS BY WARTHIN STARRY STAIN - NEGATIVE FOR DYSPLASIA, MALIGNANCY Signing Pathologist Direct Phone Line: [phone] ly signed by Bobby Warner MD on 01/24/2021 at 7:58 AMB. Immunostains for synaptophysin and chromogranin are examined and support the above diagnosis. Clinical and endoscopic corerlation is recommended to exclude autoimmune gastritis.[id number] tumorA. Biopsy, gastric antrumB. Biopsy, gastric bodyA. Received in formalin labeled with the patient's name, medical record number and "gastric Bx" and consists of 4 bravo-white soft tissue fragments measuring 1.5 x 0.2 x 0.2 cm in aggregate. The specimen is submitted in toto in A1.B. Received in formalin labeled with the patient's name, medical record number and gastric Bx" and consists of 2 bravo-pink soft tissue fragments measuring 0.9 x 0.3 x 0.3 cm in aggregate. The specimen is submitted in toto in B1.[facility] interpretation of this case included the use of immunohistochemistry or special stains.Control Slides Examined: In-house known positive controls were evaluated along with the test tissue. These control slides run alongside of the patients sample show appropriate staining. Internal positive and negative controls when available are evaluated Immunohistochemistry technical testing was performed at [facility], Pathology Laboratory where it was developed and its performance characteristics were determined. It has not been cleared or approved [...] to perform high complexity clinical laboratory testing. XR CHEST 2 VW 2020-05- No acute cardiopulmonary process. [facility] 23:16:30 Elevated right Branch hemidiaphragm, which can be seen in the setting of phrenicnerve palsy. Preliminary Report Dictated by Resident: Wali Suárez MD., have reviewed this study and agree with the abovereport.PROCEDURE: XR CHEST 2 VW CLINICAL INDICATION: cough and sob TECHNIQUE: Frontal and lateral radiographs were obtained. COMPARISON: None FINDINGS: The right hemidiaphragm is elevated. The lungs are clear. No pleuraleffusion or pneumothorax is seen. The heart is normal in size. No acute bony abnormality is noted. Mild old anterior compression of T12and L1 vertebral bodies is noted resulting in kyphosis [facility], Radiant Results Inft User - 06/03/2020 6:17 PM CDTPROCEDURE: XR CHEST 2 VWCLINICAL INDICATION: cough and sob TECHNIQUE: Frontal and lateral radiographs were obtained.COMPARISON: NoneFINDINGS:The right hemidiaphragm is elevated. The lungs are clear. No pleuraleffusion or pneumothorax is seen. The heart is normal in size.No acute bony abnormality is noted. Mild old anterior compression of T12and L1 vertebral bodies is noted resulting in kyphosisIMPRESSIONNo acute cardiopulmonary process.Elevated right hemidiaphragm, which can be seen in the setting of phrenicnerve palsy.Preliminary Report Dictated by Resident: Wali Patterson MD., have reviewed this study and agree with the abovereport. TISSUE EXAM 2018-05- Surgical Pathology 17 Report 13:07:00 Case: [id number] Authorizing Provider: Guillermo Garrison MD Collected: 06/11/2018 0805 Ordering Location: [facility] ENDOSCOPY Received: 06/11/2018 1204 SERVICES Pathologist: [...] HYPERPLASIA SJ/pl Signing Pathologist Direct Phone Line: [phone] ly signed by Nasrin Blunt MD on 06/15/2018 at 1:05 PMEndoscopic report reviewed. These features are suggestive of atrophic gastritis and correlation with patient's anti-parietal serology is recommended to exclude autoimmune gastritis. 01603 x5; 38092 x 4; 97245 x4; 85501 [id number] A. Duodenal nodule biopsy. B. Stomach antrum [...] developed and its performance characteristics determined by [facility], Pathology Laboratory. It has not been cleared [...]
--- NOTE | 2022-03-04 11:07 | ER ---
Nurse's Notes [facility] Name: Magdiel Hernandez Jr Age: 76 yrs Sex: Male : 1945 Arrival Date: 03/04/2022 Time: 09:55 Bed 11 Private MD: Marisol Kuhn Diagnosis: Bleeding from scrotum, resolved Presentation: 03/04 10:11 Chief complaint: Patient states: noticed blood in shower this morning, was unsure if it iw was coming from his urethra or his rectum, has hx of multiple urological issues. Coronavirus screen: At this time, the client does not indicate any symptoms associated with coronavirus-19. Ebola Screen: Patient negative for fever greater than or equal to 101.5 degrees Fahrenheit, and additional compatible Ebola Virus Disease symptoms Patient denies exposure to infectious person. Patient denies travel to an Ebola-affected area in the 21 days before illness onset. No symptoms or risks identified at this time. Initial Sepsis Screen: Does the patient meet any 2 criteria? No. Patient's initial sepsis screen is negative. Does the patient have a suspected source of infection? No. Patient's initial sepsis screen is negative. Risk Assessment: Do you want to hurt yourself or someone else? Patient reports no desire to harm self or others. Onset of symptoms was March 04, 2022. 10:11 Method Of Arrival: Ambulatory iw 10:11 Acuity: BECCA 3 iw Historical: - Allergies: 10:12 No Known Allergies; iw - PMHx: 10:12 Hypertensive disorder; Anxiety; iw - PSHx: 10:12 prostate removal; iw - Family history:: not pertinent. - Hospitalizations: : No recent hospitalization is reported. Screenin:10 Abuse screen: Denies threats or abuse. Denies injuries from another. Nutritional ww screening: No deficits noted. Tuberculosis screening: No symptoms or risk factors identified. Fall Risk No fall in past 12 months (0 pts). No secondary diagnosis (0 pts). No IV (0 pts). Ambulatory Aid- Crutches/Cane/Walker (15 pts). Gait- Normal/Bed Rest/Wheelchair (0 pts) Mental Status- Oriented to own ability (0 pts). Total Murray Fall Scale indicates No Risk (0-24 pts). Vital Signs: 10:11 BP 109 / 74; Pulse 66; Resp 16; Temp 98.2; Pulse Ox 95% on R/A; iw ED Course: 09:55 Patient arrived in ED. am2 09:55 Marisol Kuhn is Private Physician. am2 10:07 Joe Tsai MD is Attending Physician. rn 10:12 Triage completed. iw 10:32 Rayna Rosales, RN is Primary Nurse. iw 11:10 Patient has correct armband on for positive identification. Call light in reach. ww 11:10 No provider procedures requiring assistance completed. Patient did not have IV access ww during this emergency room visit. Administered Medications: No medications were administered Medication: 11:11 VIS not applicable for this client. ww Outcome: 11:06 Discharge ordered by . rn 11:10 Discharged to home ambulatory. ww 11:10 Condition: stable 11:10 Discharge instructions given to patient, Instructed on discharge instructions, follow up and referral plans. safety practices, Demonstrated understanding of instructions, follow-up care. 11:12 Patient left the ED. ww Signatures: Rayna Rosales RN RN Joe Tsai MD MD rn Moreno, Amanda am2 Greta Cardenas RN RN
--- NOTE | 2022-03-04 11:07 | EDPHYS ---
Physician Documentation [facility] Name: Magdiel Hernandez Jr Age: 76 yrs Sex: Male : 1945 Arrival Date: 03/04/2022 Time: 09:55 Bed 11 Private MD: Marisol Kuhn ED Physician Joe Tsai HPI: 03/04 10:57 This 76 yrs old Male presents to ER via Ambulatory with complaints of bleeding. rn 10:57 The patient presents with bleeding while in shower. Onset: The symptoms/episode rn began/occurred just prior to arrival. Modifying factors: The symptoms are alleviated by pressure, the symptoms are aggravated by nothing. Severity of symptoms: At their worst the symptoms were mild, in the emergency department the symptoms have resolved. The patient has not experienced similar symptoms in the past. The patient has not recently seen a physician. Pt reports in shower and noticed blood dripping, was not sure if from penis or scrotum, localized it to scrotum when applied pressure and stopped. No obvious injury or trauma. Not on blood thinners. No longer bleeding. Sent here by pcp. Does not feel ill. No urinary symptoms. Has to use switch in scrotum to urinate. Denies abd pain/nausea/diarrhea.. Historical: - Allergies: 10:12 No Known Allergies; iw - PMHx: 10:12 Hypertensive disorder; Anxiety; iw - PSHx: 10:12 prostate removal; iw - Family history:: not pertinent. - Hospitalizations: : No recent hospitalization is reported. ROS: 10:57 Constitutional: Negative for fever, chills, and weight loss, Eyes: Negative for injury, rn pain, redness, and discharge, Neck: Negative for injury, pain, and swelling, Cardiovascular: Negative for chest pain, palpitations, and edema, Respiratory: Negative for shortness of breath, cough, wheezing, and pleuritic chest pain, Abdomen/GI: Negative for abdominal pain, nausea, vomiting, diarrhea, and constipation, Back: Negative for injury and pain, : Negative for injury, bleeding, discharge, and swelling, MS/Extremity: Negative for injury and deformity, Skin: Negative for injury, rash, and discoloration, Neuro: Negative for headache, weakness, numbness, tingling, and seizure. Exam: 10:57 Constitutional: This is a well developed, well nourished patient who is awake, alert, rn and in no acute distress. Head/Face: Normocephalic, atraumatic. Cardiovascular: Regular rate and rhythm. No pulse deficits. Abdomen/GI: soft, non-tender Male : + hydrocele present with small areas of apparent bleeding that has now stopped/resolved. No active bleeding but does seem to have been location of source of bleeding prior to coming in. A few area of paper towel stuck to scrotum at sites of bleeding noted. Non-tender. Vital Signs: 10:11 BP 109 / 74; Pulse 66; Resp 16; Temp 98.2; Pulse Ox 95% on R/A; iw MDM: 10:08 Patient medically screened. rn 10:57 Differential diagnosis: hematuria, scrotal bleeding, abrasion, skin trauma. Data rn reviewed: vital signs, nurses notes, and as a result, I will discharge patient. Counseling: I had a detailed discussion with the patient and/or guardian regarding: the historical points, exam findings, and any diagnostic results supporting the discharge/admit diagnosis, the need for outpatient follow up, to return to the emergency department if symptoms worsen or persist or if there are any questions or concerns that arise at home. Response to treatment: the patient's symptoms have resolved after treatment, and as a result, I will discharge patient. Special discussion: I discussed with the patient/guardian in detail that at this point there is no indication for admission to the hospital. It is understood, however, that if the symptoms persist or worsen the patient needs to return immediately for re-evaluation. ED course: No longer bleeding, bleeding seems to have originated at skin of scrotum, has to manipulate switch in scrotum and has hydrocele with swelling, most likely local tissue trauma. No gross hematuria after urinating in urinal so hematuria not likely explanation. No GI symptoms to suggest GI source. Will dc home with return precautions and urology f/u. . Administered Medications: No medications were administered Disposition Summary: 03/04/22 11:06 Discharge Ordered Location: Home rn Problem: new rn Symptoms: are resolved rn Condition: Stable rn Diagnosis - Bleeding from scrotum, resolved rn Followup: rn - With: Private Physician - When: As needed - Reason: Recheck today's complaints, Re-evaluation by your physician Forms: - Medication Reconciliation Form rn - Thank You Letter rn - Antibiotic sales management intern - Prescription Opioid Use rn Signatures: Dispatcher [employer] Rayna Gilmore RN RN iw Nieto, Roman, MD MD internal medicine veterinary technician: (The following items were deleted from the chart) 10:55 10:16 Urine Dipstick-Ancillary ordered. rn rn
[2022-03-04 11:19] VITALS: BP 109/74; TEMP 98.2; O2SAT 95
== END 2022-03-04 11:12 | disposition home or self-care (01) ==
LOC: ER 09:49
DX: N50.89 Other specified disorders of the male genital organs (principal); I10 Essential (primary) hypertension; F41.9 Anxiety disorder, unspecified
CPT/HCPCS: 99281